=== PATIENT | female | born 1985 | race Asian ===

== ENCOUNTER 2020-05-16 15:48 | Emergency (ER) | payer OTHER ==
[~2020-05-16] VITALS: Ht 162.6 cm; Wt 54.0 kg
--- NOTE | 2020-05-16 16:00 | NUR ---
AT BEDSIDE FOR EVAL.
--- NOTE | 2020-05-16 16:00 | NUR ---
PT BIB SELF C/O R SHOULDER PAIN, POSSIBLE DISLOCATION W/ TRYING TO OPEN CAR TRUNK, PT IS AAOX4, NOT IN RESPIRATORY DISTRESS, HOOKED TO MONITOR, KEPT RESTED AND COMFORTABLE, WILL CONTINUE TO MONITOR.
--- NOTE | 2020-05-16 16:05 | NUR ---
IV LINE ESTABLISHED.
--- NOTE | 2020-05-16 16:09 | NUR ---
[employer]IATION SUPPORT EQUIPMENT REPAIRER AT BEDSIDE FOR XRAY.
[2020-05-16] MEDS ORDERED: PROPOFOL 20 ML IV ONE (16:10)
--- NOTE | 2020-05-16 16:22 | NUR ---
RN, RT AND MD AT BEDSIDE FOR MODERATE SEDATION SET UP.
--- NOTE | 2020-05-16 16:26 | NUR ---
SHOULDER REDUCTION DONE BY .
[2020-05-16] MEDS ORDERED: PROPOFOL 200 MG/20 ML VIAL IV ONE ×2 (16:30→17:00)
--- NOTE | 2020-05-16 16:35 | NUR ---
CORRECTIONS UNIT SUPERVISOR AT BEDSIDE FOR POST REDUCTION XRAY.
[2020-05-16 16:57] VITALS: BP 122/81
--- NOTE | 2020-05-16 16:57 | NUR ---
IV removed. Catheter intact and site benign. Pressure and 4x4 applied to site. No bleeding noted. Patient discharged to home in stable condition. Written and verbal after care instructions given. Patient verbalizes understanding of instruction.
== END 2020-05-16 16:58 | disposition home or self-care (01) ==
LOC: ER 15:52
DX: S43.014A Anterior dislocation of right humerus, initial encounter (principal); G47.419 Narcolepsy without cataplexy; X58.XXXA Exposure to other specified factors, initial encounter; Y93.89 Activity, other specified; Y92.89 Other specified places as the place of occurrence of the external cause; Y99.8 Other external cause status
CPT/HCPCS: 23650; 73020; 73030; 99152; 99285; J2704; G0500